=== PATIENT | female | born 1960 | race Caucasian/White ===

== ENCOUNTER 2017-08-05 19:35 | Emergency (ER) | payer MEDICARE, MEDICAID ==
[~2017-08-05] VITALS: Ht 152.4 cm; Wt 68.1 kg
[2017-08-05] MEDS ORDERED: SODIUM CHLORIDE FLUSH 10ML SYR IVF ONE (20:30)
[2017-08-05] MEDS ORDERED: SODIUM CHLORIDE 0.9% 1,000ML IVBOLUS ONE (20:30)
[2017-08-05] MEDS ORDERED: ONDANSETRON 2MG/ML, 2ML IVPush ONE (20:30)
[2017-08-05 20:38] LABS: WHITE BLOOD COUNT 12.5 x10^3/uL (3.4-10)
[2017-08-05 20:52] LABS: ASPARTATE AMINO TRANSFERASE 14 U/L (15-37); BLOOD UREA NITROGEN 17 mg/dL (7-18)
[2017-08-05] MEDS ORDERED: ONDANSETRON 2MG/ML, 2ML ONE (21:05)
[2017-08-05] MEDS ORDERED: ASPIRIN 81 MG TABLET CHEW ONE (21:05)
[2017-08-05] MEDS ORDERED: OMNIPAQUE 350 MG/ML, 100ML BOTTLE ONE (22:50)
[2017-08-05 23:27] LABS: PATH.CAST-FLAG NOT PRESENT; SPERM-FLAG NOT PRESENT; SRC-FLAG NOT PRESENT; XTAL-FLAG NOT PRESENT; YLC-FLAG NOT PRESENT
[2017-08-06 00:11] VITALS: BP 115/76
== END 2017-08-06 00:28 | disposition home or self-care (01) ==
LOC: ED 23:27
DX: N30.00 Acute cystitis without hematuria (principal); E86.0 Dehydration; F31.9 Bipolar disorder, unspecified; I10 Essential (primary) hypertension
CPT/HCPCS: 36415; 74177; 80053; 81001; 83690; 85025; 87086; 96361; 96374; 99285; J2405; J7030; Q9967; 87077; 87186